=== PATIENT | female | born 1975 | race Caucasian/White ===

== ENCOUNTER 2018-01-22 13:11 | Emergency (ER) | END 2018-01-22 16:22 | disposition home or self-care (01) ==

== ENCOUNTER 2018-12-15 08:43 | Emergency (ER) | payer BC ==
[~2018-12-15] VITALS: Ht 157.5 cm; Wt 63.6 kg
[~2018-12-15 08:43] MED LIST: CEPH-443 PO; IBUP-1542 PO; IBUP-1561 PO; NPH10OT LEFT EAR; SULF1TAB31 PO
[2018-12-15 08:48] VITALS: BP 119/65; PULSE 64; RESP 18; Ht 157.5 cm; Wt 63.6 kg
== END 2018-12-15 09:49 | disposition home or self-care (01) ==
LOC: FTE 08:43
DX: S80.862A Insect bite (nonvenomous), left lower leg, initial encounter (principal); L08.9 Local infection of the skin and subcutaneous tissue, unspecified; W57.XXXA Bitten or stung by nonvenomous insect and other nonvenomous arthropods, initial encounter; Y92.9 Unspecified place or not applicable
CPT/HCPCS: 99283